=== PATIENT | male | born 2000 | race African-American/Black ===

== ENCOUNTER 2024-01-17 07:22 | Day surgery (SDC) | payer OTHER ==
[~2024-01-17] VITALS: Ht 170.2 cm; Wt 68.8 kg
[~2024-01-17 07:22] MED LIST: ACET1TAB55 PO; IBUP200C89 PO; METHYLENE BLUE 0.5% (5MG/ML) 10 ML AMP (PROVAYBLUE) As Ordered ONE
[2024-01-17] MEDS ORDERED: MIDAZOLAM INJ 2MG/2ML VIAL As Ordered ONE (08:18)
[2024-01-17] MEDS ORDERED: LIDOCAINE 2% 100MG/5ML SDV (FOR ANES.) As Ordered ONE (08:19)
[2024-01-17] MEDS ORDERED: ONDANSETRON 4MG 2ML VIAL As Ordered ONE (08:19)
[2024-01-17] MEDS ORDERED: propofoL 200 MG/20 ML VIAL As Ordered ONE (08:19)
[2024-01-17] MEDS ORDERED: fentaNYL 100 MCG/2 ML INJECTION As Ordered ONE (08:19)
[2024-01-17] MEDS ORDERED: ROCURONIUM BROMIDE 50MG/5ML VIAL As Ordered ONE (08:19)
[2024-01-17] MEDS ORDERED: ACETAMINOPHEN 1000MG 100ML IV BAG As Ordered ONE (08:22)
[2024-01-17] MEDS ORDERED: dexmedeTOMIDine (4MCG/ML)200MCG/50ML BTL (PRECEDEX) As Ordered ONE (08:24)
[2024-01-17] MEDS: LR 1,000 ML IV SCH (08:35)
[2024-01-17] MEDS ORDERED: SODIUM CHLORIDE 0.9% NASAL GEL 15GM (AYR) As Ordered ONE (09:07)
[2024-01-17] MEDS ORDERED: SUGAMMADEX SODIUM 500 MG/5 ML VIAL (BRIDION) As Ordered ONE (09:42)
[2024-01-17] MEDS: LIDOCAINE W/EPINEPHRINE 1% 20ML VIAL As Ordered ONE (10:01)
[2024-01-17] MEDS: EPINEPHrine 1MG/ML INJ 30ML MD-VIAL As Ordered ONE (10:01)
[2024-01-17] MEDS ORDERED: MORPHINE 2 MG/ML 1ML VIAL IV PRN (10:40)
[2024-01-17] MEDS: oxyCODONE 5MG TAB PO PRN (11:34)
[2024-01-17] MEDS: ONDANSETRON 4MG 2ML VIAL IV PRN (11:34)
[2024-01-17] MEDS: fentaNYL 100 MCG/2 ML INJECTION IV PRN (11:48)
[2024-01-17 12:30] VITALS: BP 118/65; TEMP 97; O2SAT 95
== END 2024-01-17 13:35 | disposition home or self-care (01) ==
LOC: M SDC 07:22
PROVIDERS: ATTEND Otolaryngology
DX: J34.2 Deviated nasal septum (principal); J34.3 Hypertrophy of nasal turbinates; Z91.013 Allergy to seafood
CPT/HCPCS: 30520; 30801; 88300; J0131; J0171; J1100; J2250; J2405; J3010; Q9968